=== PATIENT | male | born 1995 | race Caucasian/White ===

== ENCOUNTER 2016-12-08 18:59 | Emergency (ER) | payer BC ==
--- NOTE | 2016-12-08 21:01 | EDM.PDOC ---
ED HPI GENERAL MEDICAL PROBLEM - General Chief Complaint: Eye Problems Stated Complaint: PT HURT LT EYE Time Seen by Provider: 12/08/16 20:57 Source of Information: Reports: Patient History Limitations: Reports: No Limitations - History of Present Illness INITIAL COMMENTS - FREE TEXT/NARRATIVE: HISTORY AND PHYSICAL: []21-year-old male presents with injury to his left cheek History of Present Illness: []Patient had been playing baseball last night was hit in the face with a pitch them down but no loss of consciousness Chest is hurting midsternal increases with deep breath Review of Systems: As per history of present illness and below otherwise all systems reviewed and negative. Past medical history: As per history of present illness and as reviewed below otherwise noncontributory. Surgical history: As per history of present illness and as reviewed below otherwise noncontributory. Social history: No reported history of drug or alcohol abuse. Family history: As per history of present illness and as reviewed below otherwise noncontributory. Physical exam: Alert and oriented, skin warm and dry, throat questions appropriately with full sentences HEENT: Atraumatic, normocehpalic, pupils reactive, negative for conjunctival pallor or scleral icterus, mucous membranes moist, throat clear, neck supple, nontender, trachea midline. Patient is able to breathe through his nose without any difficulty Lungs: Clear to auscultation, breath sounds equal bilaterally, chest non tender. Heart: S1S2, regular, negative for clicks, rubs, or JVD. Abdomen: Soft, nondistended, nontender. Negative for masses or hepatossplenmegaly. Negative for costovertebral tenderness. Pelvis: Stable nontender. Genitourinary: Deferred. Rectal: Deferred Extremities: Atraumatic, negative for cords or calf pain. Neurovascular unremarkable. Neuro: Awake, alert, oriented. Cranial nerves II through XII unremarkable. Cerebellum unremarkable. Motor and sensory unremarkable throughout. Exam nonfocal. Diagnostics: [X-ray chest, x-ray left cheek no fractures were noted] Therapeutics: [] Impression: [Contusions] Plan: [Rest ice follow-up with your PCP if not improving Definitive disposition and diagnosis as appropriate pending reevaluation and review of above. Onset: Sudden Duration: Day(s): Location: Reports: Face Quality: Reports: Throbbing Severity: Moderate Improves with: Reports: None Worsens with: Reports: None Associated Symptoms: Reports: No Other Symptoms left eye Pain Score (Numeric/FACES): 2 - Related Data Allergies Allergy/AdvReac Type Severity Reaction Status Date / Time No Known Allergies Allergy Verified 12/08/16 19:39 Home Meds: Home Meds . [No Known Home Meds] 12/08/16 [History] Past Medical History HEENT History: Reports: None Cardiovascular History: Reports: None Respiratory History: Reports: None Gastrointestinal History: Reports: None Genitourinary History: Reports: None Musculoskeletal History: Reports: None Neurological History: Reports: None Psychiatric History: Reports: None Endocrine/Metabolic History: Reports: None Hematologic History: Reports: None - Infectious Disease History Infectious Disease History: Reports: MRSA - Past Surgical History Male Surgical History: Reports: None Social & Family History - Family History Family Medical History: Noncontributory - Tobacco Use Smoking Status *Q: Current Every Day Smoker Years of Tobacco use: 4 Packs/Tins Daily: 0.5 - Recreational Drug Use Recreational Drug Use: Yes Recreational Drug Type: Reports: Marijuana/Hashish ED ROS GENERAL - Review of Systems Review Of Systems: ROS reveals no pertinent complaints other than HPI. (See dictation) ED EXAM GENERAL W FULL EYE - Physical Exam Exam: See Below Course - Vital Signs Last Recorded V/S: Last Vital Signs Temp 36.6 C 12/08/16 19:39 Pulse 72 12/08/16 19:39 Resp 14 12/08/16 19:39 BP 129/65 12/08/16 19:39 Pulse Ox 99 12/08/16 19:39 - Orders/Labs/Meds Orders: Active Orders 24 hr Category Date Time Status Chest 2V [CR] Stat Exams 12/08/16 21:01 Taken Facial Bones Comp Min 3V [CR] Stat Exams 12/08/16 21:01 Taken Departure - Departure Time of Disposition: 22:07 Disposition: Home, Self-Care 01 Condition: Good Clinical Impression: Contusion of face Qualifiers: Encounter type: initial encounter Qualified Code(s): S00.83XA - Contusion of other part of head, initial encounter - Discharge Information Forms: ED Department Discharge Additional Instructions: The following information is given to patients seen in the emergency department who are being discharged to home. This information is to outline your options for follow-up care. We provide all patients seen in our emergency department with a follow-up referral. The need for follow-up, as well as the timing and circumstances, are variable depending upon the specifics of your emergency department visit. If you don't have a primary care physician on staff, we will provide you with a referral. We always advise you to contact your personal physician following an emergency department visit to inform them of the circumstance of the visit and for follow-up with them and/or the need for any referrals to a consulting specialist. The emergency department will also refer you to a specialist when appropriate. This referral assures that you have the opportunity for followup care with a specialist. All of these measure are taken in an effort to provide you with optimal care, which includes your followup. Under all circumstances we always encourage you to contact your private physician who remains a resource for coordinating your care. When calling for followup care, please make the office aware that this follow-up is from your recent emergency room visit. If for any reason you are refused follow-up, please contact the [facility] emergency department at and asked to speak to the emergency department charge nurse. No fractures were noted on x-rays that were taken today [id number] Tylenol or ibuprofen for discomfort Ice - My Orders Last 24 Hours: My Active Orders 12/08/16 21:01 Chest 2V [CR] Stat Facial Bones Comp Min 3V [CR] Stat - Assessment/Plan Last 24 Hours: My Active Orders 12/08/16 21:01 Chest 2V [CR] Stat Facial Bones Comp Min 3V [CR] Stat
[2016-12-09 03:32] VITALS: BP 130/66
--- NOTE | 2016-12-09 10:55 | CR ---
EXAM DATE: 12/08/16 PATIENT'S AGE: 21 Patient: EULAILO AGUILA Facility: [place], [place] Site . Site : 1995 Study: XRay Chest [id number]/24/2017 9:38:38 PM Ordering Physician: Doctor Mccoy Final Report: INDICATION: Pain TECHNIQUE: Chest 2 views. COMPARISON: None FINDINGS: Cardiovascular and mediastinum: Heart size and vasculature are normal in caliber and appearance. Mediastinum is within normal limits. Lungs and pleural spaces: Lungs are clear. No sign of infiltrate or mass. No sign of pleural effusion. No pneumothorax. Bones and soft tissues: No significant findings. IMPRESSION: No sign of acute disease. Dictated by Joanna Roberson MD @ Dec 08 2016 9:59PM (Electronic Signature) Report Signed by Proxy. FABIO
--- NOTE | 2016-12-09 10:56 | CR ---
EXAM DATE: 12/08/16 PATIENT'S AGE: 21 Patient: EULALIO AGUILA Facility: [place], [place] Site . Site : 1995 Study: XRay Facial [id number]/24/2017 9:38:58 PM Ordering Physician: Doctor Mccoy Final Report: Indication: Hit in face with baseball Technique: Three views facial bones Comparison: None Findings/impression: : No acute osseous abnormality identified. If there is persistent concern for a facial bone fracture, a facial CT is recommended for further evaluation. Dictated by Joanna Roberson MD @ Dec 08 2016 10:00PM (Electronic Signature) Report Signed by Proxy. FABIO
== END 2016-12-08 22:25 | disposition home or self-care (01) ==
LOC: MW.ED 18:59
DX: S00.83XA Contusion of other part of head, initial encounter (principal); F17.210 Nicotine dependence, cigarettes, uncomplicated; W21.03XA Struck by baseball, initial encounter
CPT/HCPCS: 70150; 70150-26; 71020; 71020-26; 99282; 99283